=== PATIENT | male | born 1975 | race African-American/Black ===

== ENCOUNTER 2021-12-31 11:24 | Emergency (ER) | payer MEDICAID, OTHER ==
[~2021-12-31] VITALS: Ht 190.5 cm; Wt 81.8 kg
[2021-12-31 11:31] VITALS: BP 167/100
[2021-12-31] MEDS ORDERED: LIDOcaine 1% W/epiNEPHrine 1:100,000 20ml vial SQ ONE (12:00)
[2021-12-31] MEDS ORDERED: tetanus & diphtheria toxoid (Td) vaccine 0.5ml IMVAC ONE (12:00)
[2021-12-31] MEDS ORDERED: LIDOcaine 1% w/EPI 1:100,000 30ml vial (MDV) SQ ONE (12:15)
[2021-12-31] MEDS ORDERED: TETanus/Pertussis (Acell)/Diphther VAC/PF (Tdap-Adult) 0.5ml syringe IMVAC ONE (12:20)
== END 2021-12-31 15:17 | disposition home or self-care (01) ==
LOC: ER 11:25
DX: S01.112A Laceration without foreign body of left eyelid and periocular area, initial encounter (principal); S09.90XA Unspecified injury of head, initial encounter; X58.XXXA Exposure to other specified factors, initial encounter; Y93.89 Activity, other specified; Y92.89 Other specified places as the place of occurrence of the external cause; Y99.8 Other external cause status
CPT/HCPCS: 12011; 70450; 72125; 90471; 90715; 99284; A6449

== ENCOUNTER 2022-03-24 23:41 | Emergency (ER) | payer SELFPAY ==
[~2022-03-24] VITALS: Ht 188 cm; Wt 79.5 kg
[2022-03-24 23:50] VITALS: BP 117/66
[2022-03-25] MEDS ORDERED: INHA1EAC9 (02:42)
[2022-03-25] MEDS ORDERED: ALBU18HF2 INH (02:42)
== END 2022-03-25 03:08 | disposition home or self-care (01) ==
LOC: ER 23:42
DX: R05.9 Cough, unspecified (principal); J98.01 Acute bronchospasm; R09.89 Other specified symptoms and signs involving the circulatory and respiratory systems; Z72.89 Other problems related to lifestyle; Z79.899 Other long term (current) drug therapy
CPT/HCPCS: 71045; 99283

== ENCOUNTER 2022-04-24 16:52 | Emergency (ER) | payer SELFPAY ==
[~2022-04-24] VITALS: Ht 188 cm; Wt 81.4 kg
[~2022-04-24 16:52] MED LIST: ALBU18HF2 INH; INHA1EAC9
[2022-04-24 17:11] VITALS: BP 145/83
--- NOTE | 2022-04-24 20:10 | NUR ---
exam chaperoned by jayda GRANADOS.
[2022-04-24] MEDS ORDERED: POLY119P2 PO (20:18)
[2022-04-24] MEDS ORDERED: PHEN1SUP96 PR (20:18)
--- NOTE | 2022-04-24 20:20 | NUR ---
Covid and flu swab sent to lab.
== END 2022-04-24 20:30 | disposition home or self-care (01) ==
LOC: ER 16:52
DX: U07.1 COVID-19 (principal); Z79.899 Other long term (current) drug therapy
CPT/HCPCS: 87502; 87503; 87635; 99283; C9803; 99284

== ENCOUNTER → 2024-12-14 | Emergency (ER) | payer MEDICAID ==
[~2024-12-14] VITALS: Ht 188 cm; Wt 91.4 kg
[~2024-12-14] MED LIST changes: +ACET-1025 PO; +IBUP-1986 PO; +PHEN1SUP96 PR; +POLY119P2 PO; +ibuprofen tablet 400 MG TABLET PO STA
[2024-12-14 18:00] VITALS: BP 137/83; PULSE 90; RESP 18; O2SAT 100
--- NOTE | 2024-12-14 18:22 | RADIOLOGY REPORT ---
EXAM: DI CHEST,SINGLE VIEW TECHNIQUE: Single frontal chest radiograph CLINICAL HISTORY: pna r/o COMPARISON: CHEST,SINGLE VIEW on DOS: 03/25/22 Findings/Impression: Frontal chest radiograph demonstrates no acute osseous or superficial soft tissue abnormalities. The trachea is midline. The cardiac silhouette and mediastinum are within normal limits. No pneumothorax, pleural effusions, or consolidations.
--- NOTE | 2024-12-14 18:48 | Physician Documentation ---
History of Present Illness ~ Chief Complaint: Cough Stated Complaint: GENERAL ILLNESS Time Seen by MD: 18:17 Primary Medical Doctor: none HPI Patient is seen today with complaints of fever and chills that started yesterday as well as aggravation of a pre-existing cough. Patient does admit to smoking tobacco regularly. Patient currently denies any shortness of breath or chest p ain or abdominal pain or nausea, vomiting, diarrhea. Patient states his cough is productive and denies any hemoptysis. He has no other concern or complaint at this time. Medication Reconciliation Allergies: Coded Allergies: No Known Allergies (Unverified , 10/15/21) Scheduled Albuterol Sulfate (Ventolin Hfa), 2 PUFFS INH Q4HPRN Polyethylene Glycol 3350 (Miralax), 17 GM PO DAILY Scheduled PRN Phenylephrine HCl/Russell Butter* (Preparation H Suppository*), 1 SUPP.RECT AL Q12H PRN for itching Durable Medical Equipment Inhaler, Assist Devices (Aerochamber Z-Stat Plus), UNIT, (DME) Past Medical History Past Medical History: No Pertinent History Past Surgical History: no surgical history Alcohol Use: Occasionally Drug Use: none Lives In: Home Review of Systems Constitutional: Denies: chills, fever, weakness Eyes: Denies: pain, blurred vision ENT: Denies: ear pain, nose pain, throat pain, mouth pain Respiratory: Denies: cough, shortness of breath Cardiovascular: Denies: chest pain, palpitations Gastrointestinal: Denies: abdominal pain, nausea, vomiting Genitourinary: Denies: burning, dysuria Male Genitalia: Denies: penile discharge, testicular pain Neurological: Denies: headache, dizziness Musculoskeletal: Denies: pain, swelling Integumentary: Denies: rash, lesions Allergic/Immunologic: Denies: hives, itching Hematologic/Lymphatic: Denies: no symptoms reported Psychiatric: Denies: depression, anxiety Physical Exam Vital Signs: Temperature: 101.0, Source: Oral, Heart Rate: 90, Respiratory Rate: 18, BP: 137/83, Pulse Oximetry: 100, Weight: 91.360 Oxygen Flow Rate: 0 Physical Exam General: Awake and Alert, no acute distress. HEENT: Conjunctiva pink, Sclera clear, Mucus Membranes moist. Neck: Supple without masses and tenderness. Resp: Unlabored. Lungs clear to auscultation bilaterally. Heart: Regular Rate and rhythm, normal S1 and S2 without murmur, rub or gallop. Extremities: No cyanosis,clubbing or edema. Skin: Warm and Dry. Progress Results/Orders Results/Orders Medications Received in ER Medications (Trade) Dose Ordered Sig/Jasiel Route PRN Reason Start Time Stop Time Status Last Admin Dose Admin (Tylenol tablet) 650 mg ONCE ONCE PO 12/14/24 18:00 12/14/24 18:01 DC 12/14/24 18:15 650 MG Vital Signs 12/14/24 12/14/24 17:16 18:00 Temp 101.3 101.0 Pulse 85 90 Resp 14 18 B/P (MAP) 119/68 137/83 (101) Pulse Ox 95 100 O2 Flow Rate 0 0 Medical Decision Making Findings Patient is seen today with complaints of fever and chills that started yesterday as well as aggravation of a pre-existing cough. Patient does admit to smoking tobacco regularly. Patient currently denies any shortness of breath or chest pain or abdominal pain or nausea, vomiting, diarrhea. Patient states his cough is productive and denies any hemoptysis. He has no other concern or complaint at this time. Patient was given dose of Tylenol ibuprofen in the ED tonight. Patient was advised to discontinue smoking. Patient did have chest x-ray in the ED today that showed no abnormalities. And was unremarkable. Patient was given prescriptions for Tylenol and ibuprofen sent to his pharmacy to be taken as directed. Patient will follow up with primary care in 3-5 days if no better as needed sooner. Return to ED with any worsening, concerning or changing symptoms. Departure Disposition: HOME / SELF CARE / HOMELESS Impression: Primary Impression: Cough Qualified Codes: R05.1 - Acute cough Additional Impression: Viral illness Condition: Stable Discharge Instructions: Upper Respiratory Infection, Adult, Cough, Adult Additional Instructions: Patient was given dose of Tylenol ibuprofen in the ED tonight. Patient was advised to discontinue smoking. Patient did have chest x-ray in the ED today that showed no abnormalities. And was unremarkable. Patient was given prescriptions for Tylenol and ibuprofen sent to his pharmacy to be taken as directed. Patient will follow up with primary care in 3-5 days if no better as needed sooner. Return to ED with any worsening, concerning or changing symptoms. Referrals: NO PRIMARY CARE PROVIDER (PCP) Prescriptions Acetaminophen (Tylenol Extra Strength) 500 Mg Tablet 2 TAB PO Q6H PRN PRN for pain or fever for 7 Days, #56 TAB Prov: DRU IVAN 12/14/24 Ibuprofen (Ibuprofen) 800 Mg Tablet 1 TAB PO Q8H for pain for 10 Days, #30 TAB 0 Refills Prov: DRU IVAN 12/14/24 Signature Scribe Signature: No scribe Attestation: No scribe DRU IVAN Dec 14, 2024 18:48
[2024-12-14 19:04] VITALS: TEMP 101
== END | disposition home or self-care (01) ==
LOC: ER 17:06
DX: B34.9 Viral infection, unspecified (principal); F17.200 Nicotine dependence, unspecified, uncomplicated
CPT/HCPCS: 71045; 99283